=== PATIENT | male | born 1980 | race Caucasian/White ===

== ENCOUNTER 2018-11-13 14:17 | Emergency (ER) | payer OTHER ==
[2018-11-13] MEDS ORDERED: Morphine 4 MG/ML VIAL (1 ml) 4 MG/ML VIAL IV ONE ×3 (15:31→18:26)
--- NOTE | 2018-11-13 15:52 | ED ---
Adult Trauma - HPI Summary HPI Summary: Patient complains of shortness of breath and right side pain from right shoulder down to right flank status post mechanical fall today. Patient states he tripped over his dog falling on right side. Denies head injury, LOC, vision change, REIS, N/V, altered mental status, neck pain, abdominal pain, pain in any extremity. Patient is ambulatory. - History of Current Complaint Chief Complaint: EDFall Stated Complaint: FALL RIGHT SIDE PAIN Time Seen by Provider: 11/13/18 15:16 Hx Obtained From: Patient Mechanism of Injury: Fall Ambulatory at the Scene: Yes Loss of Consciousness: no loss of consciousness Onset of Pain: Immediate Onset Severity: Severe Current Severity: Severe Pain Intensity: 10 Pain Scale Used: 0-10 Numeric Location: Back, Other Character: Aching, Stabbing Aggravating Factor(s): Movement, Deep Breaths Alleviating Factor(s): Rest, Shallowing Breathing Associated Signs & Symptoms: Positive: SOB - Allergy/Home Medications Allergies/Adverse Reactions: Allergies Allergy/AdvReac Type Severity Reaction Status Date / Time No Known Allergies Allergy Verified 11/13/18 14:20 Home Medications: Home Medications Methocarbamol TAB* [Robaxin 500 MG TAB*] 500 mg PO BID PRN 11/13/18 [History Confirmed 11/13/18] Naproxen 500 mg PO BID PRN 11/13/18 [History Confirmed 11/13/18] PMH/Surg Hx/FS Hx/Imm Hx Endocrine/Hematology History: Denies: Hx Anticoagulant Therapy Cardiovascular History: Denies: Hx Pacemaker/ICD History: Denies: Hx Dialysis Sensory History: Denies: Hx Legally Blind Opthamlomology History: Denies: Hx Eye Prosthesis EENT History: Denies: Hx Deafness Neurological History: Denies: Hx Dementia Infectious Disease History: No Infectious Disease History: Denies: Traveled Outside the [place] in Last 30 Days - Family History Known Family History: Positive: Non-Contributory - Social History Alcohol Use: Occasionally Hx Substance Use: No Hx Tobacco Use: No Review of Systems Constitutional: Negative Eyes: Negative ENT: Negative Cardiovascular: Negative Positive: Shortness Of Breath Gastrointestinal: Negative Genitourinary: Negative Musculoskeletal: Other Skin: Negative Neurological: Negative Psychological: Normal All Other Systems Reviewed And Are Negative: Yes Physical Exam - Summary Physical Exam Summary: Diminished breath sounds on right side. Tenderness to palpation along right posterior shoulder, down right lateral chest wall. No pain with palpation of face, neck, anterior chest wall, abdomen. Patient moves upper left extremity and bilateral lower extremities without pain. Some pain in right side with movement of right lower extremity. Patient able to flex and extend right upper extremity at wrist, elbow and shoulder with some pain in right side. No ecchymosis, erythema, deformity, swelling noted to right upper extremity, right back or right lateral chest wall. Triage Information Reviewed: Yes Vital Signs On Initial Exam: Initial Vitals Temp Pulse Resp BP Pulse Ox 97.7 F 88 18 129/91 94 11/13/18 14:17 11/13/18 14:17 11/13/18 14:17 11/13/18 14:17 11/13/18 14:17 Vital Signs Reviewed: Yes Appearance: Positive: Well-Appearing Skin: Positive: Warm Head/Face: Positive: Normal Head/Face Inspection Eyes: Positive: Normal ENT: Positive: Normal ENT inspection Dental: Negative: Dental Fracture @, Bleeding Neck: Positive: Supple Respiratory/Lung Sounds: Positive: Other Cardiovascular: Positive: Normal Abdomen Description: Positive: Nontender Musculoskeletal: Positive: Normal Neurological: Positive: Normal Psychiatric: Positive: Normal AVPU Assessment: Alert - Ru Coma Scale Best Eye Response: 4 - Spontaneous Best Motor Response: 6 - Obeys Commands Best Verbal Response: 5 - Oriented Coma Scale Total: 15 Diagnostics - Vital Signs Vital Signs Temp Pulse Resp BP Pulse Ox 11/13/18 14:17 97.7 F 88 18 129/91 94 - Laboratory Result Diagrams: 11/13/18 15:48 11/13/18 15:48 Lab Statement: Any lab studies that have been ordered have been reviewed, and results considered in the medical decision making process. Adult Trauma Course/Dx - Course Course Of Treatment: Patient complains of shortness of breath and right side pain from right shoulder down to right flank status post mechanical fall today. Patient states he tripped over his dog falling on right side. Denies head injury, LOC, vision change, REIS, N/V, altered mental status, neck pain, abdominal pain, pain in any extremity. Patient is ambulatory. Vital signs within normal limits. Labs unremarkable. X-ray of ribs and chest negative for rib fractures, positive for pneumothorax on right side. Chest tube placed by Dr. Mariano. Chest tube placement confirmed by chest x-ray. Repeat x-ray shows lung size increasing. X-ray of right shoulder negative. Patient transferred table condition to [place] trauma level I. No thoracic surgery available here at [facility] [place]. - Diagnoses Provider Diagnoses: Pneumothorax on right, Fall Discharge ED - Sign-Out/Discharge Documenting (check all that apply): Patient Departure Patient Received Moderate/Deep Sedation with Procedure: No - Discharge Plan Condition: Stable Disposition: TRANS HIGHER LVL OF CARE FAC Referrals: [facility] [Outside] - Billing Disposition and Condition Condition: STABLE Disposition: Trans Higher Lvl of Care Fac
[2018-11-13] MEDS ORDERED: Lidocaine 1% INJ* 10 MG/ML 30 ML SDV INJ ONE (15:53)
[2018-11-13] MEDS ORDERED: ceFAZolin 1 GM ADVAN(*) 1 GM in NS 0.9% 50 ML* 50 ML IVPB ONE (15:56)
[2018-11-13 16:00] LABS: ABS Basophils 0.1 10^3/ul (0-0.2); ABS Lymphocytes 0.8 10^3/ul (1.0-4.8); ABS Monocytes 0.8 10^3/ul (0-0.8); ABS Neutrophils 13.2 10^3/ul (1.5-7.7); Eosinophil % 0.1 %; Hematocrit 49 % (42-52); Hemoglobin 17.2 g/dL (14.0-18.0); Lymphocyte % 5.2 %; Mean Corpuscular HGB Conc 35 g/dL (31-36); Mean Corpuscular Hemoglobin 32 pg (27-31); Mean Corpuscular Volume 90 fL (80-94); Nucleated Red Blood Cells % 0.1; Platelet Count 311 10^3/uL (150-450); Red Blood Count 5.44 10^6 /uL (4.18-5.48); Red Cell Distribution Width 13 % (10-15); White Blood Count 14.9 10^3/uL (3.5-10.8)
[2018-11-13 16:14] LABS: Albumin 5.4 g/dL (3.2-5.2); Albumin/Globulin Ratio 1.8 (1-3); BUN/Creatinine Ratio 12.8 (8-20); Calcium 9.7 mg/dL (8.6-10.3); EGFR African American 72.4 (>60); EGFR Non-African American 59.9 (>60); Potassium 4.2 mmol/L (3.5-5.0); Total Bilirubin 0.5 mg/dL (0.2-1.0); Total Protein 8.4 g/dL (6.4-8.9)
[2018-11-13] MEDS ORDERED: fentaNYL* 50 MCG/ML 2 ML VIAL (100 MCG VIAL) ONE (16:14)
[2018-11-13] MEDS ORDERED: fentaNYL* 50 MCG/ML 2 ML VIAL (100 MCG VIAL) IV SLOW PU ONE (16:55)
--- NOTE | 2018-11-13 17:36 | ED ---
Progress - Progress Note Progress Note: Pt reporting continued dyspnea after chest tube placement. Repeat chest x-rays ordered. I spoke with Dr. Pacheco about the pt and his chest tube. He states the PTX has improved, but the CT is slightly dislodged. Since it is still in place, we will be transferring the pt to [place], where they can also replace it if needed. - Results/Orders Results/Orders: CXR shows: PARTIAL WITHDRAWAL OF THE CHEST TUBE. PNEUMOTHORAX HAS SIGNIFICANTLY DECREASED IN SIZE AND BARELY PERCEPTIBLE ON THIS PORTABLE STUDY. ED physician has reviewed this report. Course/Dx - Diagnoses Provider Diagnoses: Pneumothorax on right, Fall - Critical Care Time Critical Care Time: 30-74 min - 30min Discharge ED - Sign-Out/Discharge Documenting (check all that apply): Patient Departure - Discharge Plan Condition: Stable Disposition: TRANS HIGHER LVL OF CARE FAC Referrals: [facility] [Outside] - Billing Disposition and Condition Condition: STABLE Disposition: Trans Higher Lvl of Care Fac - Attestation Statements Document Initiated by Scribe: Yes Documenting Scribe: Maritza Araya Provider For Whom Toreye is Documenting (Include Credential): Floyd Brunner MD. Scribe Attestation: I, Maritza Araya, scribed for Floyd Brunner MD. on 11/13/18 at 1840. Scribe Documentation Reviewed: Yes Provider Attestation: The documentation as recorded by the scribe, Maritza Araya accurately reflects the service I personally performed and the decisions made by me, Floyd Brunnre MD. Status of Scribe Document: Viewed Procedures - Chest Tube Right Mid Lateral Chest Tube Location: forth interspace Size of [place] Tube (cm): 8 Chest Tube Procedure: sterile drapes applied, sterile dressing applied Anesthesia: 1% Lidocaine Capps of Air [place]: Yes Tube Sutured to Skin: Yes Post Procedure CXR?: Yes
[2018-11-13 18:28] VITALS: BP 123/83
== END 2018-11-13 18:25 | disposition short-term general hospital (02) ==
LOC: ED 14:17
DX: J93.9 Pneumothorax, unspecified (principal); R06.00 Dyspnea, unspecified; R10.84 Generalized abdominal pain; W19.XXXA Unspecified fall, initial encounter; Y92.9 Unspecified place or not applicable
CPT/HCPCS: 32551; 36415; 71045; 80053; 85025; 86850; 86900; 86901; 96365; 96375; 96376; 99285; J0690; J2270; J3010